=== PATIENT | female | born 1990 | race Caucasian/White ===

== ENCOUNTER 2017-08-10 18:23 | Outpatient (CLI) | END 2017-08-10 23:58 | disposition home or self-care (01) ==

== ENCOUNTER 2017-08-25 11:11 | Outpatient (CLI) | END 2017-08-25 13:22 | disposition home or self-care (01) ==

== ENCOUNTER 2017-09-13 14:43 | Outpatient (CLI) | END 2017-09-13 18:59 | disposition home or self-care (01) ==

== ENCOUNTER 2017-09-16 18:33 | Outpatient (CLI) | END 2017-09-16 20:56 | disposition home or self-care (01) ==

== ENCOUNTER 2017-09-19 10:43 | Outpatient (CLI) | END 2017-09-19 12:54 | disposition home or self-care (01) ==

== ENCOUNTER 2017-09-22 12:22 | Outpatient (CLI) | END 2017-09-22 14:45 | disposition home or self-care (01) ==

== ENCOUNTER 2017-10-17 17:33 | Outpatient (CLI) | END 2017-10-17 18:58 | disposition home or self-care (01) ==

== ENCOUNTER 2017-10-18 20:30 | Inpatient (IN) | END 2017-10-19 12:33 | disposition home or self-care (01) | DRG 781 ==

== ENCOUNTER 2017-10-30 12:06 | Inpatient (IN) | END 2017-11-04 13:10 | disposition home or self-care (01) | DRG 775 ==